=== PATIENT | male | born 1955 | race Caucasian/White ===

== ENCOUNTER 2017-05-30 08:14 | Day surgery (SDC) | payer BC ==
[2017-05-30] MEDS ORDERED: Lactated Ringers 1,000 ML IV SCH (08:15)
[2017-05-30] MEDS ORDERED: Midazolam 1 MG/ML 2 ML SDV IV ONE (09:30)
[2017-05-30] MEDS ORDERED: Propofol 200 MG/20 ML SDV IV ONE (09:30)
--- NOTE | 2017-05-30 09:56 | PCM.OPNOTE ---
- General Post-Op/Procedure Note Date of Surgery/Procedure: 05/30/17 Operative Procedure(s): c scope with bx Findings: sigmoid polyp rectal polyp sigmoid diverticulosis Pre Op Diagnosis: screening Post-Op Diagnosis: sigmoid polyp. rectal polyp. sigmoid diverticulosis Anesthesia Technique: MAC Primary Surgeon: Shane Dodge Anesthesia Provider: Kimber Pritchett Pathology: sigmoid polyp rectal polyp Complications: None Condition: Good Free Text/Narrative:: see dictation
--- NOTE | 2017-05-30 10:34 | OR ---
DATE OF OPERATION: 05/30/2017 SURGEON: Shane Dodge MD PROCEDURE PERFORMED: Colonoscopy with cold forceps biopsy. PREOPERATIVE DIAGNOSIS: Need for screening colonoscopy. POSTOPERATIVE DIAGNOSIS: Sigmoid and rectal polyp, and sigmoid diverticulosis. INDICATIONS FOR PROCEDURE: This is a 62-year-old white male, who presents for a screening colonoscopy. He was offered and accepted same. DESCRIPTION OF PROCEDURE: After an excellent IV sedation was administered via anesthesia, a digital rectal exam was performed. No marked abnormality was noted. The flexible colonoscope was inserted and advanced without difficulty to the cecum. The prep was excellent. The following findings were noted. Ascending colon, unremarkable. Transverse colon, unremarkable. Descending colon, unremarkable. Sigmoid, scattered diverticulosis and what appeared to be a small polypoid lesion, biopsied with a single bite of the biopsy forceps and sent for permanent. In the rectum, there was a small hyperplastic appearing polyp. This was biopsied with cold biopsy forceps as well and sent for permanent. The colon was deflated, scope was removed. The patient tolerated the procedure well and was taken to recovery in good condition. /[id number] /MODL
[2017-05-30 11:02] VITALS: BP 135/74
== END 2017-05-30 11:25 | disposition home or self-care (01) ==
LOC: FB.SDS 08:14
PROVIDERS: ATTEND Surgery
DX: Z12.11 Encounter for screening for malignant neoplasm of colon (principal); K63.5 Polyp of colon; K62.1 Rectal polyp; K57.30 Diverticulosis of large intestine without perforation or abscess without bleeding; E78.5 Hyperlipidemia, unspecified; K21.9 Gastro-esophageal reflux disease without esophagitis; Z88.0 Allergy status to penicillin; Z88.2 Allergy status to sulfonamides; Z88.8 Allergy status to other drugs, medicaments and biological substances; Z91.09 Other allergy status, other than to drugs and biological substances; Z79.899 Other long term (current) drug therapy; Z90.49 Acquired absence of other specified parts of digestive tract; Z87.891 Personal history of nicotine dependence
CPT/HCPCS: 88305; J2250; J2704; J7120